=== PATIENT | male | born 1995 | race Two or more races ===

== ENCOUNTER 2019-02-27 19:05 | Emergency (ER) | payer MEDICAID, OTHER ==
[~2019-02-27] VITALS: Ht 177.8 cm; Wt 77.1 kg
[2019-02-27] MEDS ORDERED: FLUORESCEIN SOD 1 MG TEST STRIP EACHEYE ONE (20:00)
[2019-02-27] MEDS ORDERED: TETRACAINE HCL 0.5% OPTH(EYE) SOLN 4ML EACHEYE ONE (20:00)
[2019-02-27 20:31] VITALS: BP 133/68
== END 2019-02-27 21:46 | disposition home or self-care (01) ==
LOC: ER 19:05
DX: S05.02XA Injury of conjunctiva and corneal abrasion without foreign body, left eye, initial encounter (principal); H10.12 Acute atopic conjunctivitis, left eye; X58.XXXA Exposure to other specified factors, initial encounter; Y93.89 Activity, other specified; Y99.8 Other external cause status; Y92.89 Other specified places as the place of occurrence of the external cause